=== PATIENT | female | born 1995 | race Hispanic/Latino ===

== ENCOUNTER 2023-03-04 15:37 | Outpatient (CLI) | payer OTHER | END 2023-03-04 15:38 | disposition home or self-care (01) | LOC: CSHCT 15:37 | PROVIDERS: ATTEND Nurse Practitioner Gerontology | DX: R10.32 Left lower quadrant pain (principal); N94.89 Other specified conditions associated with female genital organs and menstrual cycle | CPT/HCPCS: 74177 ==